=== PATIENT | male | born 1980 | race Asian ===

== ENCOUNTER → 2024-05-11 12:33 | Outpatient (CLI) | payer OTHER, SELFPAY ==
--- NOTE | 2024-05-11 12:36 | DI.ECHO.S_ITS ---
[facility] +---------+ [facility] : : [address] : : [place] : : [id number] : : Phone: [phone] Echocardiogram Report + + :Name: PAYTON MONSALVE V Study Date: 05/11/2024 Height: 65 in : :[facility] ReadingLocation: Weight: 155 lb : : Gender: Male BSA: 1.8 m2 : :: 1980 Age: 44 yrs BP: 159/102 mmHg: :Reason For Study: TACHYCARDIA : :Ordering Physician: KRISTEN, : :CHARLES Performed By: Bryce Garcia : :Referring: CHARLES PETERSON : + + Interpretation Summary 1. The left ventricular contractility is normal. Estimate ejection fraction is greater than 55% with no segmental wall motion abnormalities. Mild concentric LVH. Impaired relaxation. 2. The right ventricular contractility is normal. 3. All cardiac chambers are of normal size. 4. No significant valvular abnormalities. 5. No obvious intracardiac shunts. 6. No obvious intracardiac masses or thrombi. 7. No hemodynamically significant pericardial effusion. 8. Low right-sided filling pressures. Conclusion: Normal biventricular systolic function with no significant valvular abnormalities. The mild concentric left ventricle hypertrophy and impaired relaxation may indicate suboptimal blood pressure control. Procedure: A two-dimensional transthoracic echocardiogram with color flow and Doppler was performed. The study quality was technically good. There is no prior echocardiogram noted for this patient. The patient was in normal sinus rhythm during the exam. Left Ventricle: The left ventricle is normal in size. Left ventricular wall thickness is mildly increased. There is no ventricular septal defect visualized. The ejection fraction is estimated to be 50-55%. There are no focal wall motion abnormalities. Right Ventricle: The right ventricle is normal size. The right ventricular systolic function is normal. Atria: The left atrial size is normal. Right atrial size is normal. There is no Doppler evidence for an atrial septal defect. Mitral Valve: The mitral valve leaflets appear normal. There is no evidence of stenosis, fluttering, or prolapse. There is trace mitral regurgitation. Aortic Valve: The aortic valve is trileaflet. The aortic valve opens well. No aortic regurgitation is present. Tricuspid Valve: The tricuspid valve leaflets are thin and pliable. There is a trace or physiologic amount of tricuspid regurgitation. Pulmonic Valve: The pulmonic valve leaflets are thin and pliable; valve motion is normal. There is no pulmonic valvular regurgitation. Great Vessels: The aortic root is normal size. The dimensions of the ascending aorta are normal. The pulmonary artery is normal size. The IVC is of normal diameter and collapses greater than 50% with a sniff. This suggests a low right atrial pressure of 3 mm Hg. Pericardium/ Pleura There is no pericardial effusion. There is no pleural effusion. MMode/2D Measurements & Calculations LVIDd: 3.5 cm LVOT diam: 1.9 cm LVIDs: 2.5 cm Ao root diam: 3.1 cm FS: 30.2 % asc Aorta Diam: 3.1 cm EPSS: 0.84 cm Ao Arch Diam (Prox Trans): 1.5 cm IVSd: 1.1 cm LVPWd: 1.0 cm LV scales. diameter/BSA (cm/m^2): 2.0 LV sys. diameter/BSA (cm/m^2): 1.4 LA A2 area: 15.8 cm2 RA long axis: 4.0 cm LA A4 area: 14.2 cm2 RA area: 10.8 cm2 LA length (vol): 4.8 cm RA vol: 24.6 ml LA vol: 39.9 ml RA : 13.9 ml/m2 LA vol index: 22.5 ml/m2 IVC diam: 1.5 cm RVD1 (basal): 3.5 cm RVD2 (mid): 2.7 cm TAPSE: 2.1 cm Doppler Measurements & Calculations Ao V2 max: 126.1 cm/sec LVOT Max Jacob: 100.1 cm/sec Ao V2 mean: 89.9 cm/sec LV V1 max P.0 mmHg Ao max P.4 mmHg LV V1 VTI: 20.4 cm Ao mean P.6 mmHg DIMITRY(I,D): 2.6 cm2 Ao V2 VTI: 21.9 cm DIMITRY(V,D): 2.2 cm2 sev ratio: 0.93 DIMITRY indexed to BSA (cm^2/m^2): 1.5 MV E max jacob: 67.8 cm/sec PA V2 max: 81.1 cm/sec MV A max jacob: 59.6 cm/sec PA V2 mean: 49.8 cm/sec MV E/A: 1.1 PA mean P.2 mmHg Med Peak E' Jacob: 6.1 cm/sec PA pr(Accel): 43.0 mmHg E/E' med: 11.1 Lat Peak E' Jacob: 10.3 cm/sec E/E' lat: 6.6 E/e' average: 8.9 MV dec time: 0.17 sec SV(LVOT): 57.1 ml Reading Physician:JAME
== END ==
PROVIDERS: Referring Provider Physician Assistant; Visit Provider Physician Assistant
DX: R00.0 Tachycardia, unspecified (principal)
CPT/HCPCS: 93306